=== PATIENT | female | born 1965 | race Caucasian/White ===

== ENCOUNTER → 2023-05-07 06:19 | Day surgery (SDC) | payer OTHER, SELFPAY | LOC: GI 06:19 | PROVIDERS: ATTENDING PHYSICIAN Surgery; FAMILY PHYSICIAN Nurse Practitioner Adult Health | DX: Z12.11 Encounter for screening for malignant neoplasm of colon (principal); Z86.010 Personal history of colon polyps; K57.30 Diverticulosis of large intestine without perforation or abscess without bleeding; K64.9 Unspecified hemorrhoids | CPT/HCPCS: G0105 ==

== ENCOUNTER → 2023-05-14 08:03 | Outpatient (REF) | payer OTHER, SELFPAY | LOC: HWWDC 08:03 | PROVIDERS: ATTENDING PHYSICIAN Nurse Practitioner Adult Health | DX: Z76.89 Persons encountering health services in other specified circumstances (principal); Z12.31 Encounter for screening mammogram for malignant neoplasm of breast | CPT/HCPCS: 77063; 77067 ==

== ENCOUNTER 2023-09-15 18:56 | Emergency (ER) | payer OTHER, SELFPAY ==
[2023-09-15 18:57] VITALS: BP 160/90
--- NOTE | 2023-09-15 19:38 | ED.GENMED ---
History of Present Illness
General
Chief Complaint: Skin Problem
Time Seen by Provider: 09/15/23 19:31
Travel History
Have you had any contact with someone who has COVID-19?: No
Do you have any symptoms of coronavirus? Fever > 100 degrees, chills, cough, shortness of breath, sore throat, loss of taste or smell, muscle aches, or headache?: No
History of Present Illness
History of Present Illness:
58-year-old female presents the emergency department for evaluation of redness and swelling to the right ankle and lower leg, states that 5 days ago she had a glass shatter adjacent to the leg and was concerned for possible glass embedded in the
skin. She has been trying to express discharge of pus from the wound to the right medial ankle over the past several days. Denies fevers or chills.
Past History
Past History
ED Past Medical History: None
Social History
Tobacco: Non-smoker
Personal:
Living: with family
Employment: Not employed
Review of Systems
Review of Systems
Allergies reviewed?: Yes
All Other Systems: ROS reviewed and negative except as documented in HPI and ROS
Phy Exam
Physical Exam
Physical Exam:
GEN: Well appearing, NAD, WDWN
HEENT: Oral mucosa moist, no scleral icterus
Cardiac: Regular rate
Lung: No respiratory distress, no tachypnea
MSK: No gross deformity or injuries
Skin: Good color, no pallor or jaundice. Superficial wound just superior to the right medial ankle, there is mild swelling and redness extending from the right medial ankle to the right mid calf, no circumferential erythema, dorsalis pedis pulses
strong
Neuro: AO x3, moves all extremities freely
Psych: Calm, cooperative
Course
Orders/Labs/Results
Orders:
Orders
09/15/23 19:01
Ankle, Right 3 view CR [CR Ankle - Right Min 3 Views *] Urgent
Comment:
Reason For Exam: POSSIBLE GLASS IN ANKLE
09/15/23 19:39
Cephalexin Monohydrate [Keflex] 500 mg PO NOW STA
Vital Signs
Initial and Last Documented VS:
Initial Vital Signs
Temp Pulse Resp BP Pulse Ox
99.1 F 58 16 160/90 98
09/15/23 18:57 09/15/23 18:57 09/15/23 18:57 09/15/23 18:57 09/15/23 18:57
Last Documented Vital Signs
Temp Pulse Resp BP Pulse Ox
99.1 F 53 16 154/83 97
09/15/23 18:57 09/15/23 19:55 09/15/23 18:57 09/15/23 19:55 09/15/23 19:55
MDM/Problems Addressed
MDM/Problems Addressed:
Will treat for cellulitis, x-ray showed no evidence for radiopaque foreign body or the glass would not be radiopaque. I do not palpate any obvious emergent foreign bodies adjacent to the wound thus there is no indication for exploration of the wound
*Critical Care Note
Total Time (30-74mins, 75-104mins- exclusive of procedures): Not Applicable
ED Attending Note
-
Portions of this chart may have been created with voice recognition software.� Occasional wrong word or��sound alike� substitutions may have occurred due to the inherent limitations of voice recognition software.
Discharge Plan
Departure
Patient Disposition: Home (Routine Discharge)
Date of Disposition: 09/15/23
Time of Disposition: 19:38
Patient with high blood pressure during this ER visit?: No
Discharge Problem:
Cellulitis of leg, right
Instructions: Cellulitis (Skin Infection), Adult (DC)
Prescriptions:
New
cephalexin 500 mg capsule
500 mg PO QID 7 Days Qty: 28 0RF
No Action
hydrocodone-acetaminophen [[place]] 1 EACH tablet
1 ea PO Q4HPRN PRN (Reason: severe pain) Qty: 10 0RF
Referrals:
Reyna Wetzel CRNP [Family Provider] -
Interventions
Interventions:
*Risk Screen - Suicide Last Done: 09/15/23 18:57
*General Assessment Last Done: 09/15/23 19:48
*Neglect/Abuse Screening Last Done: 09/15/23 18:57
*Nursing Disposition Last Done: 09/15/23 19:55
ED-Skin Assessment Last Done: 09/15/23 19:20
Discharge Date and Time
Discharge Date/Time: 09/15/23 19:57
Print Language: MALTESE
[2023-09-15] MEDS: KEFLEX 500 MG PO (19:48)
[2023-09-15 19:55] VITALS: BP 154/83
== END 2023-09-15 19:57 | disposition home or self-care (01) ==
LOC: EMR 18:56
PROVIDERS: EMERGENCY PHYSICIAN Emergency Medicine; FAMILY PHYSICIAN Nurse Practitioner Adult Health
DX: L03.115 Cellulitis of right lower limb (principal)
CPT/HCPCS: 99283; 73610

== ENCOUNTER → 2023-09-30 11:47 | Outpatient (REF) | payer OTHER, SELFPAY | LOC: RAD 11:47 | PROVIDERS: ATTENDING PHYSICIAN Nurse Practitioner Adult Health; REFERRING PHYSICIAN Orthopaedic Surgery | DX: M79.645 Pain in left finger(s) (principal) | CPT/HCPCS: 73120 ==

== ENCOUNTER → 2024-05-17 08:25 | Outpatient (REF) | payer OTHER, SELFPAY | LOC: HWWDC 08:25 | PROVIDERS: ATTENDING PHYSICIAN Nurse Practitioner Adult Health; FAMILY PHYSICIAN Nurse Practitioner Adult Health | DX: Z12.31 Encounter for screening mammogram for malignant neoplasm of breast (principal) | CPT/HCPCS: 77063; 77067 ==

== ENCOUNTER 2024-08-29 00:32 | Emergency (ER) | payer OTHER, SELFPAY ==
[2024-08-29 00:32] VITALS: BMI 27.7
[2024-08-29 00:34] VITALS: BP 136/78
--- NOTE | 2024-08-29 01:48 | ED.GENMED ---
History of Present Illness
General
Chief Complaint: Musculo-Skeletal Complaint
Source: patient and spouse
Exam Limitations: none
Time Seen by Provider: 08/29/24 01:10
Nursing documentation reviewed up to this point in time: agreed with
History of Present Illness
History of Present Illness:
This is a 59-year-old woman with history of hypertension, anxiety presents after trip and fall at home tonight falling forward injuring her left shoulder as well as suffering abrasion to her left cheek. She denies loss of consciousness, denies
headache, denies neck nor back pain. She is right-hand dominant.
She complains of significant pain left shoulder with inability to move her shoulder related to pain. No pain to her arm nor forearm. No weakness nor numbness.
She denies facial pain, denies dental pain, no vision difficulty.
She does admit to moderate alcohol consumption tonight. Denies daily alcohol use. Denies drug use. She takes no anticoagulants.
She is right-hand dominant.
Past History
Past History
ED Past Medical History: HTN and Psychiatric
ED Past Surgical History: Gynecological
Social History
Tobacco: Non-smoker
Alcohol: Occasional
Drug: None
Personal:
Living: with family
Employment: Not employed
Family History
Family History: Other (Noncontributory)
Phy Exam
Physical Exam
Physical Exam:
TRAUMA EXAM:
VITAL SIGNS: Vital signs reviewed, cooperative
DISTRESS: No active disease. 59-year-old woman appears her stated age, awake and alert, pleasant, appears in no acute distress. is accompanying.
EYES: Pupils reactive, no orbital trauma
NOSE: No deformity or epistaxis
FACE AND SCALP: Linear patterned abrasion left cheek with very minimal soft tissue swelling. No palpable tenderness to the facial tenderness. Teeth are intact. Full mandible range of motion without difficulty nor pain. External canals no blood
NECK: Supple nontender, full range of motion without difficulty nor pain.
BACK: Back nontender, pelvis stable to compression
RESPIRATORY: No distress, breath sounds normal, no tender chest wall
CARDIAC: No murmur, pulses equal and strong
ABDOMEN: Soft nontender bowel sounds normal
SKIN: Skin intact no bleeding, color normal
EXTREMITIES: Moderate joint effusion left shoulder with exquisite tenderness about the left shoulder. Markedly limited range of motion of left shoulder related to pain. There is no tenderness to the upper arm nor elbow nor forearm. Hand grasp are
full and equal bilaterally. Peripheral pulses are full and equal. Sensation and strength intact. No gross deformity noted.
NEUROLOGICAL: Alert, oriented, no motor deficits
PSYCH: Mood affect normal
Course
Orders/Labs/Results
Orders:
Orders
08/29/24 00:43
Shoulder, Left, Trauma CR [CR Shoulder, Trauma - Left] Urgent
Comment:
Reason For Exam: fall
08/29/24 01:45
HYDROmorphone [Dilaudid] 0.5 mg IV NOW STA
08/29/24 01:46
Ice Pack-Treatment DIRECTED
Location: left shoulder, left face
Ketorolac [Toradol] 15 mg IV NOW STA
Ondansetron Injectable [Zofran] 4 mg IV NOW STA
08/29/24 03:33
Shoulder Immobilizer Left- Tx ONCE
Vital Signs
Initial and Last Documented VS:
Initial Vital Signs
Temp Pulse Resp BP Pulse Ox
97.8 F 64 18 136/78 97
08/29/24 00:34 08/29/24 00:34 08/29/24 00:34 08/29/24 00:34 08/29/24 00:34
Last Documented Vital Signs
Temp Pulse Resp BP Pulse Ox
98.5 F 74 16 97/64 98
08/29/24 02:40 08/29/24 02:40 08/29/24 02:40 08/29/24 04:00 08/29/24 04:00
MDM/Problems Addressed
Differential Diagnosis Includes:
Concern for left shoulder fracture, other consideration is dislocation.
Patient noted to have left facial abrasion but no significant tenderness nor soft tissue swelling. She denies loss of consciousness, denies headache, takes no anticoagulants.
Admits to alcohol consumption tonight but she remains bright and alert, oriented x 3, no evidence of significant intoxication. Thus no indication for CT of the head nor radiologic imaging of the face.
Will medicate for pain and x-ray left shoulder.
*Radiology
Radiology exam reviewed: preliminary read by ED provider (X-ray shows fracture of humeral head.)
*Pulse Oximetry
Patient hypoxic: no
*Critical Care Note
Total Time (30-74mins, 75-104mins- exclusive of procedures): Not Applicable
Update Note
Update Note:
X-ray shows fracture of humeral head.
Patient is much more comfortable after IV pain medication.
Will place in shoulder immobilizer with plan for prompt follow-up with orthopedics. Patient has seen Dr. Lao in the past and plans to follow-up with Dr. Lao.
ED Attending Note
-
Portions of this chart may have been created with voice recognition software.� Occasional wrong word or��sound alike� substitutions may have occurred due to the inherent limitations of voice recognition software.
Discharge Plan
Departure
Patient Disposition: Home (Routine Discharge)
Date of Disposition: 08/29/24
Time of Disposition: 03:35
Patient with high blood pressure during this ER visit?: No
Condition: Good
Discharge Problem:
Fracture of head of left humerus, Abrasion of face
Instructions: Shoulder or upper arm fracture
Prescriptions:
New
oxycodone-acetaminophen [Percocet] 5-325 mg Tablet
1 tab PO Q6HPRN PRN (Reason: pain) Qty: 10 0RF
ibuprofen 600 mg tablet
600 mg PO Q6H PRN (Reason: fever or pain) Qty: 30 0RF
No Action
hydrocodone-acetaminophen [[place]] 1 EACH tablet
1 ea PO Q4HPRN PRN (Reason: severe pain) Qty: 10 0RF
cephalexin 500 mg capsule
500 mg PO QID 7 Days Qty: 28 0RF
Referrals:
Reyna Wetzel CRNP [Family Provider, Internal Medicine]
Maury Lao MD [Active, Orthopedics] - Follow up in 2-3 days
Interventions
Interventions:
*Risk Screen - Suicide Last Done: 08/29/24 00:34
*General Assessment Last Done: 08/29/24 01:14
*Neglect/Abuse Screening Last Done: 08/29/24 00:34
*ED- Fall Risk Assessment Last Done: 08/29/24 01:14
ED-Musculoskeletal Assessment Last Done: 08/29/24 01:14
Discharge Date and Time
Print Language: [place]
[2024-08-29] MEDS: TORADOL 15 MG IV (01:51)
[2024-08-29] MEDS: DILAUDID 0.5 MG IV (01:51)
[2024-08-29] MEDS: ZOFRAN 4 MG IV (01:51)
[2024-08-29 02:40] VITALS: BP 118/68
[2024-08-29 03:12] VITALS: BP 104/70
[2024-08-29 04:00] VITALS: BP 97/64
== END 2024-08-29 04:20 | disposition home or self-care (01) ==
LOC: EMR 00:32
PROVIDERS: EMERGENCY PHYSICIAN Emergency Medicine; FAMILY PHYSICIAN Nurse Practitioner Adult Health
DX: S42.255A Nondisplaced fracture of greater tuberosity of left humerus, initial encounter for closed fracture (principal); S00.81XA Abrasion of other part of head, initial encounter; W01.0XXA Fall on same level from slipping, tripping and stumbling without subsequent striking against object, initial encounter; I10 Essential (primary) hypertension
CPT/HCPCS: 96374; 96375; 99284; 73030